=== PATIENT | male | born 1990 | race Asian ===

== ENCOUNTER 2019-10-24 07:44 | Emergency (ER) | payer MEDICAID ==
[~2019-10-24] VITALS: Ht 165.1 cm; Wt 62.1 kg
[2019-10-24 07:58] VITALS: Ht 165.1 cm; Wt 62.1 kg
[2019-10-24 09:28] VITALS: BP 127/60
== END 2019-10-24 09:48 | disposition home or self-care (01) ==
LOC: ED 07:44
DX: S86.911A Strain of unspecified muscle(s) and tendon(s) at lower leg level, right leg, initial encounter (principal); W22.8XXA Striking against or struck by other objects, initial encounter; Y93.89 Activity, other specified; Y92.89 Other specified places as the place of occurrence of the external cause; Y99.8 Other external cause status